=== PATIENT | female | born 1985 | race Two or more races ===

== ENCOUNTER 2018-08-02 01:15 | Emergency (ER) | payer OTHER ==
[2018-08-02] MEDS ORDERED: Acetaminophen/HYDROcodone 325-5 MG Tab PO STA (02:28)
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
[2018-08-02] MEDS ORDERED: Ondansetron 4 MG Tab.DIS PO ONE (03:26)
[2018-08-02] MEDS ORDERED: Ondansetron 4 MG Tab.DIS ONE (03:27)
== END 2018-08-02 02:45 | disposition home or self-care (01) ==
LOC: EEVIPCON 01:15 → JD.ED 01:15
DX: S00.83XA Contusion of other part of head, initial encounter (principal); S10.91XA Abrasion of unspecified part of neck, initial encounter; F17.210 Nicotine dependence, cigarettes, uncomplicated; Z88.1 Allergy status to other antibiotic agents; Y04.8XXA Assault by other bodily force, initial encounter
CPT/HCPCS: 99284; A9270; 99283

== ENCOUNTER 2019-01-19 12:30 | Emergency (ER) | payer SELFPAY ==
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
--- NOTE | 2019-01-20 09:28 | US ---
First trimester obstetrical ultrasound: Multiple real-time images were obtained transvaginally. Comparison: No previous study for current . Dates: LMP: LMP given as 12/02/18, FABIOLA 09/08/19, gestational age 6 weeks 6 days Current ultrasound: FABIOLA 09/08/19, gestational age 6 weeks 6 days Single intrauterine gestation is seen. Yolk sac and pole are noted. Minimal subchorionic hemorrhage is seen. Small echogenic area is noted within the left ovary believed to be incidental. Hypoechoic area is seen within the right ovary measuring 3.2 cm which is likely physiologic. Free fluid seen within the pelvis. Measurements: Gestational sac: 2.08 cm - 6 weeks 4 days [place]-rump length: 0.85 cm - 6 weeks 6 days Heart rate: 122 bpm Impression: 1. Single intrauterine gestation. Dates as noted above. 2. Minimal subchorionic hemorrhage. Other findings believed to be incidental. Diagnostic code #2 I agree with preliminary report from [facility], finalized on 01/19/19, 4:49 PM Central Time
== END 2019-01-19 16:20 | disposition home or self-care (01) ==
LOC: JD.ED 12:30
DX: O20.8 Other hemorrhage in early pregnancy (principal); Z88.1 Allergy status to other antibiotic agents; Z87.891 Personal history of nicotine dependence; Z3A.01 Less than 8 weeks gestation of pregnancy
CPT/HCPCS: 36415; 76817; 76817-26; 81001; 84702; 85025; 86900; 86901; 99283; 99284-25

== ENCOUNTER 2019-02-04 10:53 | Emergency (ER) | payer SELFPAY ==
[2019-02-04] MEDS ORDERED: Sodium Chloride 0.9% 1,000 ML IV STA (11:16)
[2019-02-04] MEDS ORDERED: Ondansetron 4 MG/2 ML SDV IVPUSH ONE (11:16)
[2019-02-04] MEDS ORDERED: Sodium Chloride 0.9% 10 ML Syringe FLUSH PRN (11:16)
[2019-02-04] MEDS ORDERED: Acetaminophen 325 MG Tab PO ONE (11:23)
--- NOTE | 2019-02-04 13:01 | US ---
First trimester obstetrical ultrasound: Multiple real-time images were obtained transvaginally. Comparison: Previous obstetrical ultrasound of 01/19/19. Dates: LMP: LMP given as 12/02/18, FABIOLA 09/08/19, gestational age 9 weeks 1 day Current ultrasound: FABIOLA 09/09/19, gestational age 9 weeks 0 days Earliest ultrasound (01/19/19) : FABIOLA 09/08/19, gestational age 9 weeks 1 day Single intrauterine gestation is seen. Amniotic fluid volume is normal. Small embryo is identified. Small subchorionic hemorrhage is seen. Maternal ovaries are within normal limits. Measurements: [place]-rump length: 21.83 mm - 8 weeks 6 days Heart rate: 179 bpm Impression: 1. Small subchorionic hemorrhage. 2. Single intrauterine gestation, dates as noted above. 3. No other complicating process is seen by ultrasound exam. Diagnostic code #3
--- NOTE | 2019-02-04 13:51 | EDM.PDOC ---
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 She is at 9 weeks gestation with a LNMP of 12/02/18. She was seen here on the and diagnosed with a subchorionic hemorrhage. She then had some bleeding last week and again last night. She felt light headed last night. She has pain to the left lower abdomen and pelvis. She has no fever, chills, cough, chest pain or shortness of breath. She has no pain with urination. Her doctor is Dr Beltran. She has nausea but no vomiting. Onset: Gradual Duration: Day(s): (Last night) Location: Reports: Abdomen Quality: Reports: Sharp Severity: Moderate Improves with: Reports: None Worsens with: Reports: None Associated Symptoms: Reports: Nausea/Vomiting Right Lower Pelvic Pain Score (Numeric/FACES): 10 - Related Data Allergies Allergy/AdvReac Type Severity Reaction Status Date / Time ciprofloxacin [From Cipro] Allergy Rash Verified 02/04/19 11:00 Home Meds: Home Meds Vit37/Iron/Folic Acid [Prenata] 1 tab PO DAILY 01/19/19 [History] Past Medical History - Past Health History Medical/Surgical History: Denies Medical/Surgical History 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: Musculoskeletal History: Reports: Other (See Below) Other Musculoskeletal History: vitamin D deficiency - Infectious Disease History Infectious Disease History: Reports: Chicken Pox Social & Family History - Family History Family Medical History: Noncontributory - Tobacco Use Smoking Status *Q: Current Some Day Smoker Years of Tobacco use: 18 Packs/Tins Daily: 0.5 Used Tobacco, but Quit: Yes Month/Year Tobacco Last Used: Dec 2018 - Caffeine Use Caffeine Use: Reports: Coffee - Recreational Drug Use Recreational Drug Use: No - Living Situation & Occupation Living situation: Reports: , with Spouse, with Family (Son) Occupation: Employed ([employer]) ED ROS GENERAL - Review of Systems Review Of Systems: See Below Constitutional: Reports: No Symptoms HEENT: Reports: No Symptoms Respiratory: Reports: No Symptoms Cardiovascular: Reports: No Symptoms Endocrine: Reports: No Symptoms GI/Abdominal: Reports: Abdominal Pain, Nausea. Denies: Vomiting : Reports: No Symptoms Musculoskeletal: Reports: No Symptoms Skin: Reports: No Symptoms ED EXAM - Physical Exam Exam: See Below Exam Limited By: No Limitations General Appearance: Alert, No Apparent Distress Ears: Normal External Exam Nose: Normal Inspection Head: Atraumatic, Normocephalic Neck: Normal Inspection Respiratory/Chest: No Respiratory Distress, Lungs Clear, Normal Breath Sounds Cardiovascular: Regular Rate, Rhythm, No Edema, No Murmur GI/Abdominal Exam: Soft, No Mass, Tender (Moderate tenderness to the right lower abdomen) Extremities: Normal Inspection Course - Vital Signs Last Recorded V/S: Last Vital Signs Temp 97.5 F 02/04/19 11:00 Pulse 108 H 02/04/19 11:00 Resp 18 02/04/19 11:00 BP 119/85 02/04/19 11:00 Pulse Ox 98 02/04/19 11:00 Orthostatic Blood Pressure [ 119/76 Standing] Orthostatic Blood Pressure [ 114/78 Sitting] Orthostatic Blood Pressure [ 121/79 Supine] - Orders/Labs/Meds Orders: Active Orders 24 hr Category Date Time Status Pelvic Exam, Set Up [RC] ASDIRECTED Care 02/04/19 11:19 Active Peripheral IV Care [RC] . DIRECTED Care 02/04/19 11:16 Active Sodium Chloride 0.9% [Saline Flush] Med 02/04/19 11:16 Active 10 ml FLUSH ASDIRECTED PRN ED Antiemetic Medication Reflex [OM.PC] Stat Oth 02/04/19 11:16 Ordered Peripheral IV Insertion Adult [OM.PC] Stat Oth 02/04/19 11:16 Ordered Medication Orders Sodium Chloride (Saline Flush) 10 ml FLUSH ASDIRECTED PRN PRN Reason: Keep Vein Open Last Admin: 02/04/19 11:30 Dose: 10 ml Labs: Laboratory Tests 02/04/19 02/04/19 02/04/19 Range/Units 11:25 11:25 11:25 WBC 10.95 H (3.98-10.04) K/mm3 RBC 4.27 (3.98-5.22) M/mm3 Hgb 12.7 (11.2-15.7) gm/dl Hct 37.5 (34.1-44.9) % MCV 87.8 (79.4-94.8) fl MCH 29.7 (25.6-32.2) pg MCHC 33.9 (32.2-35.5) g/dl RDW Std Deviation 40.2 (36.4-46.3) fL Plt Count 284 (182-369) K/mm3 MPV 8.7 L (9.4-12.3) fl Neut % (Auto) 73.2 H (34.0-71.1) % Lymph % (Auto) 15.3 L (19.3-51.7) % [place] % (Auto) 10.4 (4.7-12.5) % Eos % (Auto) 0.7 (0.7-5.8) Baso % (Auto) 0.2 (0.1-1.2) % Neut # (Auto) 8.01 H (1.56-6.13) K/mm3 Lymph # (Auto) 1.68 (1.18-3.74) K/mm3 [place] # (Auto) 1.14 H (0.24-0.36) K/mm3 Eos # (Auto) 0.08 (0.04-0.36) K/mm3 Baso # (Auto) 0.02 (0.01-0.08) K/mm3 Sodium 137 (136-145) mEq/L Potassium 3.8 (3.5-5.1) mEq/L Chloride 102 (98-107) mEq/L Carbon Dioxide 24 (21-32) mEq/L Anion Gap 14.8 (5-15) BUN 9 (7-18) mg/dL Creatinine 0.8 (0.55-1.02) mg/dL Est Cr Clr Drug Dosing 84.29 mL/min Estimated GFR (MDRD) > 60 (>60) mL/min BUN/Creatinine Ratio 11.3 L (14-18) Glucose 95 (74-106) mg/dL Calcium 8.9 (8.5-10.1) mg/dL Total Bilirubin 0.4 (0.2-1.0) mg/dL AST 12 L (15-37) U/L ALT 20 (14-59) U/L Alkaline Phosphatase 39 L (46-116) U/L Total Protein 7.7 (6.4-8.2) g/dl Albumin 3.8 (3.4-5.0) g/dl Globulin 3.9 gm/dL Albumin/Globulin Ratio 1.0 (1-2) HCG, Quant 170766.0 mIU/mL Blood Type 02/04/19 Range/Units 11:25 WBC (3.98-10.04) K/mm3 RBC (3.98-5.22) M/mm3 Hgb (11.2-15.7) gm/dl Hct (34.1-44.9) % MCV (79.4-94.8) fl MCH (25.6-32.2) pg MCHC (32.2-35.5) g/dl RDW Std Deviation (36.4-46.3) fL Plt Count (182-369) K/mm3 MPV (9.4-12.3) fl Neut % (Auto) (34.0-71.1) % Lymph % (Auto) (19.3-51.7) % [place] % (Auto) (4.7-12.5) % Eos % (Auto) (0.7-5.8) Baso % (Auto) (0.1-1.2) % Neut # (Auto) (1.56-6.13) K/mm3 Lymph # (Auto) (1.18-3.74) K/mm3 [place] # (Auto) (0.24-0.36) K/mm3 Eos # (Auto) (0.04-0.36) K/mm3 Baso # (Auto) (0.01-0.08) K/mm3 Sodium (136-145) mEq/L Potassium (3.5-5.1) mEq/L Chloride (98-107) mEq/L Carbon Dioxide (21-32) mEq/L Anion Gap (5-15) BUN (7-18) mg/dL Creatinine (0.55-1.02) mg/dL Est Cr Clr Drug Dosing mL/min Estimated GFR (MDRD) (>60) mL/min BUN/Creatinine Ratio (14-18) Glucose (74-106) mg/dL Calcium (8.5-10.1) mg/dL Total Bilirubin (0.2-1.0) mg/dL AST (15-37) U/L ALT (14-59) U/L Alkaline Phosphatase (46-116) U/L Total Protein (6.4-8.2) g/dl Albumin (3.4-5.0) g/dl Globulin gm/dL Albumin/Globulin Ratio (1-2) HCG, Quant mIU/mL Blood Type O POSITIVE Meds: Medications Generic Name Dose Route Start Last Admin Trade Name Freq PRN Reason Stop Dose Admin Sodium Chloride 10 ml 02/04/19 11:16 02/04/19 11:30 Saline Flush FLUSH 10 ml ASDIRECTED PRN Administration Keep Vein Open Discontinued Medications Generic Name Dose Route Start Last Admin Trade Name Freq PRN Reason Stop Dose Admin Acetaminophen 975 mg 02/04/19 11:23 02/04/19 11:30 Tylenol PO 02/04/19 11:24 975 mg NOW ONE Administration Sodium Chloride 1,000 mls @ 1,000 mls/hr 02/04/19 11:16 02/04/19 11:28 Normal Saline IV 02/04/19 12:15 1,000 mls/hr .BOLUS STA Administration Ondansetron HCl 4 mg 02/04/19 11:16 02/04/19 11:28 Zofran IVPUSH 02/04/19 11:17 4 mg ONETIME ONE Administration - Re-Assessments/Exams Free Text/Narrative Re-Assessment/Exam: 02/04/19 13:59 I ordered an IV NS 1L bolus, labs, and a pelvic US. Her WBC was slightly elevated at 10.95. Her CMP looks good. Her Hcg is 151,386. Her US shows small subchorionic hemorrhage. Single intrauterine gestation, at 8 weeks 6 days. No other complicating process is seen by US. I called Dr Beltran's nurse and they will call the patient to check on her and see if they can see her sooner. Departure - Departure Time of Disposition: 14:05 Disposition: Home, Self-Care 01 Condition: Good Clinical Impression: Subchorionic hemorrhage Qualifiers: Fetus number: single or unspecified fetus Trimester: first trimester Qualified Code(s): O41.8X10 - Other specified disorders of amniotic fluid and membranes, first trimester, not applicable or unspecified; O46.8X1 - Other antepartum hemorrhage, first trimester - Discharge Information *PRESCRIPTION DRUG MONITORING PROGRAM REVIEWED*: No *COPY OF PRESCRIPTION DRUG MONITORING REPORT IN PATIENT LIDIA: No Referrals: Javon Beltran MD [Primary Care Provider] - Forms: ED Department Discharge Additional Instructions: Dr Beltran's nurse will call you within a few days to check on you. No lifting over 8 pounds. Eight pounds is about the weight of a milk jug. No vaginal intercourse until are you cleared by Dr Beltran. Please return if you are worse. - My Orders Last 24 Hours: My Active Orders 02/04/19 11:16 Peripheral IV Care [RC] . DIRECTED Sodium Chloride 0.9% [Saline Flush] 10 ml FLUSH ASDIRECTED PRN ED Antiemetic Medication Reflex [OM.PC] Stat Peripheral IV Insertion Adult [OM.PC] Stat 02/04/19 11:19 Pelvic Exam, Set Up [RC] ASDIRECTED - Assessment/Plan Last 24 Hours: My Active Orders 02/04/19 11:16 Peripheral IV Care [RC] . DIRECTED Sodium Chloride 0.9% [Saline Flush] 10 ml FLUSH ASDIRECTED PRN ED Antiemetic Medication Reflex [OM.PC] Stat Peripheral IV Insertion Adult [OM.PC] Stat 02/04/19 11:19 Pelvic Exam, Set Up [RC] ASDIRECTED
== END 2019-02-04 14:25 | disposition home or self-care (01) ==
LOC: JD.ED 10:53
DX: O20.9 Hemorrhage in early pregnancy, unspecified (principal); O99.331 Smoking (tobacco) complicating pregnancy, first trimester; F17.210 Nicotine dependence, cigarettes, uncomplicated; Z88.1 Allergy status to other antibiotic agents; Z3A.09 9 weeks gestation of pregnancy
CPT/HCPCS: 36415; 76817; 80053; 84702; 85025; 86900; 86901; 96361; 96374; 99284; A9270; J2405; J7040

== ENCOUNTER 2019-09-01 07:16 | Inpatient (IN) | payer MEDICAID ==
--- NOTE | 2019-08-31 08:42 | PCM.HP.2 ---
H&P History of Present Illness - General Date of Service: 09/01/19 Admit Problem/Dx: Jana is a 34-year-old 2 para 1001 white female who is admitted for elective induction of labor on 09/01/2019 at 39-0/7 weeks gestational age with an FABIOLA of 09/08/2019. Source of Information: Patient History Limitations: Reports: No Limitations - History of Present Illness Initial Comments - Free Text/Narative: Jana is a 34-year-old 2 para 1001 white female who is admitted for elective induction of labor on 09/01/2019 at 39-0/7 weeks gestational age with an FABIOLA of 09/08/2019.The procedure and process of induction of labor, its risks, benefits and alternatives are discussed in detail with patient. She appears to understand and wishes to proceed. course: The patient has been seen since early part of at 10 weeks and 3 days. Her FABIOLA of 09/08/2019 was set by certain last menstrual period occurring 12/02/2018 and supported by at least 5 ultrasounds during the course of the . Her first delivery was an on 10/16/2006 at 40 weeks gestational age after 18 hours of labor. She delivered a 7 lbs. 6 oz. male infant with the assistance of epidural analgesia in [facility]. Child's name is Tyler. She is rubella immune. She had her T-dap immunization on 07/24/2019. Her has been highlighted by a positive RPR for which she and her sexual partner have been treated. Her syphilis titers have been maintained at 1: 2 much of the last trimester of the . Approximately 08/18/2019 she was noted to have an umbilicated tender lesion left labia which was diagnosed as genital HSV. She was started on acyclovir 400 mg by mouth 3 times a day. With this lesion has resolved. Patient is maintained on prophylactic acyclovir at the same dose. otherwise has been relatively unremarkable. Her weight gain has been from 164 193 pounds from 29 pound increase. Her vital signs been stable throughout the course and her fundal height growth has been just above infected. She is admitted for induction of labor because of an HSV clear window. Pediatrics has been end of the positive RPR and the titers obtained recently. Patient desires an epidural in labor. She is group B strep negative. She had an e- PDS score of 1/30 on 04/09/2019. She had nausea and vomiting which did resolve within the first trimester. She plans to breast- feed. She did have a subchorionic hemorrhage noted on ultrasound in second trimester. This has resolved. Laboratory testing and shows blood to be O+ with negative and by screen. First hemoglobin was 13.2 g/dL and platelets are 256,000. She is rubella immune. Her RPR was reactive as stated above. Culture was unremarkable. Hepatitis B surface antigen and HIV assays were both negative. Chlamydia and gonorrhea assays are both negative. TSH obtained on 06/09/2019 was normal at 0.903 mU/mL. Second trimester hemoglobin was 12.3 g/dL and platelets are 246,000. One-hour GTT was 93. Free T4 on 06/09/2019 was normal at 0.68. With treatment her RPR titer decreased to 1:[address] for the last month. 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 Allergies: Ciprofloxacin which causes a rash Medications: 1. Acyclovir 400 mg by mouth 3 times a day 2. Lidocaine gel/ointment when necessary for painnow resolved 3. vitamins Past medical history: 1. 1 2006. 2. Positive RPR 3. Genital HSV. Past surgical history: Unremarkable Family history: Patient has a son who is autistic. Sister and maternal grandfather is diabetic. Mother is alive but diagnosed with pancreatic cancer. Father is alive and well. Brother is alive and well. One sister alive and well. No other anesthesia, bleeding, blood clotting or cancerous problems noted in the family. Social history: Patient is . is [place] and she does not use any significant most alcohol, drugs or tobacco. Review of systems: In general patient has no complaints. AB has been active. Skin: Negative Lungs: No infectious symptoms or shortness of breath Cardiovascular: No chest pain or exercise intolerance Breasts: Changes associated with . GI: Negative : Body habitus changes associated with . Musculoskeletal: Negative Neurological: Negative In general the patient is well-developed, well-nourished, pleasant female of stated age in no acute distress. On last evaluation in clinic on 08/25/2019 her blood pressure was 114/76. Weight was 193 with a pregravid weight 164. Her height is 5 feet 3 inches. Prepregnancy body mass index was 25.5. heart rate was 128. Skin is warm dry without lesions. HEENT, neck and back within normal limits. Lungs are clear with good breath sounds in all lung stephenson. Cardiovascular exam shows regular and rhythm without murmurs. Breast exam is deferred. This is done at first visit found to be normal. Abdomen is gravid with fundal height of 41 cm. Baby in vertex presentation. Genital exam on last evaluation clinic shows cervix to be 2 cm dilated, 70% effaced, soft, mid position, -3 station. Presentation confirmed Extremities and neurological exam are grossly within normal limits. 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: Musculoskeletal History: Reports: Other (See Below) Other Musculoskeletal History: vitamin D deficiency - Infectious Disease History Infectious Disease History: Reports: Chicken Pox Social & Family History - Family History Family Medical History: Noncontributory - Caffeine Use Caffeine Use: Reports: Coffee - Living Situation & Occupation Living situation: Reports: , with Spouse, with Family (Son) Occupation: Employed ([employer]) H&P Review of Systems - Review of Systems: Review Of Systems: See Below Exam - Exam Exam: See Below Problem List Initiated/Reviewed/Updated: Yes Assessment/Plan Comment:: 1. Follow 39-0/7 week intrauterine , admitted for elective induction of labor 2. History of positive RPRstatus post treatment with tighter over the last month at 1:2. 3. Genital HSV diagnosed 08/18/2019treated with acyclovir 400 by mouth 3 times a day since that time now on prophylaxis dose. 4. Patient desires breast-feeding 5. Patient desires epidural in labor and delivery 6. Rubella immune 7. Patient has had T dap immunization Plan: 1. Pitocin/artificial rupture membranes induction of labor. Procedure, risks, benefits, alternatives care discussed with patient. She appears understand and wishes to proceed 2. Epidural for labor 3. Support breast-feeding decision 4. RPR titer and CBC upon admission. 5. PediatricsDr. Ricksinformed of patient's RPR status. Has been sent latest lab results. 6. Routine labor care. 7. Continue acyclovir until the time of labor.
[~2019-09-01 07:16] MED LIST: Bupivacaine 0.25% 10 ML SDV ONE
[2019-09-01] MEDS ORDERED: Sodium Chloride 0.9% 10 ML Syringe FLUSH PRN (07:27)
[2019-09-01] MEDS ORDERED: Ondansetron 4 MG/2 ML SDV IVPUSH PRN (07:27)
[2019-09-01] MEDS ORDERED: Nalbuphine 10 MG/ML Syringe IVPUSH PRN (07:27)
[2019-09-01] MEDS ORDERED: Oxytocin/Lactated Ringers 10 UNIT/1,000 ML BAG IV SCH ×2 (07:30)
[2019-09-01] MEDS ORDERED: Acetaminophen 325 MG Tab PO PRN (07:46)
[2019-09-01] MEDS ORDERED: ePHEDrine 50 MG/ML SDV IVPUSH PRN (07:54)
[2019-09-01] MEDS ORDERED: fentaNYL 100 MCG/2 ML SDV EPIDUR PRN (07:54)
[2019-09-01] MEDS ORDERED: Bupivacaine/fentaNYL/NS 100 ML Bag EPIDUR PRN (07:54)
[2019-09-01] MEDS ORDERED: diphenhydrAMINE 50 MG/ML SDV IVPUSH PRN (07:54)
[2019-09-01] MEDS: Lactated Ringers 1,000 ML IV SCH ×3 (08:30→15:47)
--- NOTE | 2019-09-01 11:33 | PCM.PREANE ---
Preanesthetic Assessment - Procedure Proposed Procedure: Epidural - Anesthesia/Transfusion/Family Hx Anesthesia History: Prior Anesthesia Without Reaction Family History of Anesthesia Reaction: No Transfusion History: No Prior Transfusion(s) - Review of Systems General: No Symptoms Pulmonary: No Symptoms Cardiovascular: No Symptoms Gastrointestinal: No Symptoms Neurological: No Symptoms Other: Reports: None - Physical Assessment Vital Signs: Last Vital Signs Temp 36.9 C 09/01/19 07:28 Pulse 102 H 09/01/19 08:48 Resp 16 09/01/19 07:28 BP 108/73 09/01/19 07:28 Pulse Ox 98 09/01/19 07:28 Height: 1.6 m Weight: 88.451 kg ASA Class: 2 Mental Status: Alert & Oriented x3 Airway Class: Mallampati = 1 Dentition: Reports: Normal Dentition Thyro-Mental Finger Breadths: 3 Mouth Opening Finger Breadths: 3 ROM/Head Extension: Full Lungs: Clear to Auscultation, Normal Respiratory Effort Cardiovascular: Regular Rate, Regular Rhythm - Lab Values: Laboratory Last Values WBC 10.48 K/mm3 (3.98-10.04) H 09/01/19 07:50 RBC 4.16 M/mm3 (3.98-5.22) 09/01/19 07:50 Hgb 12.1 gm/dl (11.2-15.7) 09/01/19 07:50 Hct 36.5 % (34.1-44.9) 09/01/19 07:50 MCV 87.7 fl (79.4-94.8) 09/01/19 07:50 MCH 29.1 pg (25.6-32.2) 09/01/19 07:50 MCHC 33.2 g/dl (32.2-35.5) 09/01/19 07:50 RDW Std Deviation 45.6 fL (36.4-46.3) 09/01/19 07:50 Plt Count 246 K/mm3 (182-369) 09/01/19 07:50 MPV 9.3 fl (9.4-12.3) L 09/01/19 07:50 Neut % (Auto) 61.7 % (34.0-71.1) 09/01/19 07:50 Lymph % (Auto) 25.2 % (19.3-51.7) 09/01/19 07:50 [place] % (Auto) 11.4 % (4.7-12.5) 09/01/19 07:50 Eos % (Auto) 1.0 (0.7-5.8) 09/01/19 07:50 Baso % (Auto) 0.2 % (0.1-1.2) 09/01/19 07:50 Neut # (Auto) 6.47 K/mm3 (1.56-6.13) H 09/01/19 07:50 Lymph # (Auto) 2.64 K/mm3 (1.18-3.74) 09/01/19 07:50 [place] # (Auto) 1.19 K/mm3 (0.24-0.36) H 09/01/19 07:50 Eos # (Auto) 0.11 K/mm3 (0.04-0.36) 09/01/19 07:50 Baso # (Auto) 0.02 K/mm3 (0.01-0.08) 09/01/19 07:50 - Allergies Allergies/Adverse Reactions: Allergies Allergy/AdvReac Type Severity Reaction Status Date / Time ciprofloxacin [From Cipro] Allergy Rash Verified 09/01/19 07:27 - Acknowledgements Anesthesia Type Planned: Epidural Pt an Appropriate Candidate for the Planned Anesthesia: Yes Alternatives and Risks of Anesthesia Discussed w Pt/Guardian: Yes Pt/Guardian Understands and Agrees with Anesthesia Plan: Yes PreAnesthesia Questionnaire - Past Health History Medical/Surgical History: Denies 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: Musculoskeletal History: Reports: Other (See Below) Other Musculoskeletal History: vitamin D deficiency - Infectious Disease History Infectious Disease History: Reports: Chicken Pox, Herpes, Other (See Below) Other Infectious Disease History: RPR positive in February 2019, titer 1:32, treated x3 IM Penicillin doses - SUBSTANCE USE Smoking Status *Q: Former Smoker Second Hand Smoke Exposure: No Recreational Drug Use History: No - HOME MEDS Home Medications: Home Meds Vit37/Iron/Folic Acid [Prenata] 1 tab PO DAILY 01/19/19 [History] Acyclovir [Zovirax] 400 mg PO TID 09/01/19 [History] - CURRENT (IN HOUSE) MEDS Current Meds: Current Medications Acetaminophen (Tylenol) 650 mg PO Q4H PRN PRN Reason: Headache Last Admin: 09/01/19 07:55 Dose: 650 mg Diphenhydramine HCl (Benadryl) 25 mg IVPUSH Q6H PRN PRN Reason: pruritis Ephedrine Sulfate (Ephedrine Sulfate) 5 mg IVPUSH ASDIRECTED PRN PRN Reason: Hypotension Fentanyl (Sublimaze) 100 mcg EPIDUR Q3H PRN PRN Reason: Pain Fentanyl/Bupivacaine HCl (Fentanyl/Bupivacaine/Ns 2 Mcg-0.125% 100 Ml) 100 ml EPIDUR ASDIRECTED PRN PRN Reason: Pain Lactated Ringer's (Ringers, Lactated) 1,000 mls @ 100 mls/hr IV ASDIRECTED PHYLLIS Last Admin: 09/01/19 08:30 Dose: 100 mls/hr Oxytocin/Lactated Ringer's (Pitocin In Lr 10 Units/1,000 Ml) 10 unit in 1,000 mls @ 12 mls/hr IV TITRATE PHYLLIS; Protocol Last Titration: 09/01/19 11:20 Dose: 14 munits/min, 84 mls/hr Oxytocin/Lactated Ringer's (Pitocin In Lr 10 Units/1,000 Ml) 10 unit in 1,000 mls @ 500 mls/hr IV .CONTINUOUS PHYLLIS Nalbuphine HCl (Nubain) 10 mg IVPUSH Q2H PRN PRN Reason: Pain Ondansetron HCl (Zofran) 4 mg IVPUSH Q4H PRN PRN Reason: Nausea/Vomiting Sodium Chloride (Saline Flush) 10 ml FLUSH ASDIRECTED PRN PRN Reason: Keep Vein Open
[2019-09-01] MEDS ORDERED: Oxytocin/Lactated Ringers 20 UNIT/1,000 ML BAG IV SCH (14:15)
[2019-09-01] MEDS ORDERED: Methylergonovine 0.2 MG/1 ML Amp IM ONE (21:00)
[2019-09-01] MEDS ORDERED: Methylergonovine 0.2 MG/1 ML Amp ONE ×2 (21:12→21:15)
--- NOTE | 2019-09-01 21:23 | PCM.SN ---
- Free Text/Narrative Note: Delivery note: Jana is a 34-year-old 2 para 1001 white female who is admitted for elective induction of labor on 09/01/2019 at 39-0/7 weeks gestational age with an FABIOLA of 09/08/2019.Induction started with Pitocin IV. After approximately 3 hours artificial rupture membranes was undertaken with resultant clear amniotic fluid. Patient had an epidural for labor analgesia. With that she is able to rest. She slowly progressed to 5-6 hours and rapidly progressed to sleep. She pushed for approximately 30 minutes and delivered a viable, bonilla, female infant with Apgars of 8 and 9, length of 20.0 inches weight of 3660 g (8 lbs. 1 oz.) in a left occiput anterior position at 2100 hrs. on 09/01/2019. Baby was placed on mom's abdomen. Nose and mouth were bulb suctioned. Pitocin was increased to facilitate an increase in uterine tone and decrease likelihood of bleeding. Patient did have moderate amount of bleeding and IM Methergine-0.2 mg was given. The baby was was dried and the umbilical cord was allowed to pulsate approximate 2-3 minutes. It was then clamped 2 and cut by the baby's father Shawn. There were 3 vessels in the umbilical cord. Umbilical cord appeared normal. Cord blood was obtained. The placenta delivered at 2105 hrs. in a [place] presentation, appeared intact and complete and was discarded per patient desire. The patient plans to breast-feed. Blood loss was 300 mL. Condition: TeleHealth - TeleHealth Patient Service Facility: [facility]: [facility] Informed Consent: Telemedicine Audio/Visual Informed Consent: The risks, benefits, and alternatives to the telehealth visit were explained to the patient and the patient consented to this modality of care. The telehealth visit was carried out via a secure, web-based conferencing system. This telemedicine service was a real-time, two-way interactive video and communication between the patient and the provider. All the parties involved were identified and approved by the patient prior to the visit. Any physical exam was assisted by the patient. Unless noted otherwise, the provider was located at their usual clinic location , and the patient was at their place of residence. Patient identity was confirmed by having the patient state their name and date of . All communications with the patient (verbal, audiovisual, and written) were documented in the patients medical record per documentation standards.
[2019-09-01] MEDS ORDERED: Docusate Sodium 100 MG Cap PO PRN (21:25)
[2019-09-01] MEDS ORDERED: Benzocaine/Menthol 20%-0.5% Spray 56 GM Canister TOP PRN (21:25)
[2019-09-01] MEDS ORDERED: Witch Hazel Medicated Pads 40/Jar TOP PRN (21:25)
[2019-09-01] MEDS: Ibuprofen 600 MG Tab PO PRN (22:11)
--- NOTE | 2019-09-02 07:49 | PCM48HPAN ---
Post Anesthesia Note - EVALUATION WITHIN 48HRS OF ANESTHETIC Vital Signs in Normal Range: Yes Patient Participated in Evaluation: Yes Respiratory Function Stable: Yes Airway Patent: Yes Cardiovascular Function Stable: Yes Hydration Status Stable: Yes Pain Control Satisfactory: Yes Nausea and Vomiting Control Satisfactory: Yes Mental Status Recovered: Yes Vital Signs: Last Vital Signs Temp 36.7 C 09/02/19 02:35 Pulse 87 09/02/19 02:35 Resp 14 09/02/19 02:35 BP 123/68 09/02/19 02:35 Pulse Ox 95 09/02/19 02:35 - COMMENTS/OBSERVATIONS Free Text/Narrative:: no anesthesia complications noted
[2019-09-02] MEDS: Prenatal Multivitamin with Calcium/Folic Acid/Iron Tab PO SCH (09:26)
[2019-09-02] MEDS: Ibuprofen 600 MG Tab PO PRN ×2 (09:26→19:47)
--- NOTE | 2019-09-02 11:20 | PCM.SN.2 ---
- Free Text/Narrative Note: note: Patient is doing well in the period. Minimal lochia, voiding well, ambulated without problems. Patient is bottle feeding. Patient is afebrile, vital signs are stable Abdomen is flat, soft, uterus is just above the umbilicus and is firm and nontender. Legs are nontender. Assessment: recovery going well. Plan: Routine care. Patient be discharged home within the next 24- 48 hours.
[2019-09-02] MEDS: Acetaminophen 325 MG Tab PO PRN (21:43)
[2019-09-03] MEDS: Acetaminophen 325 MG Tab PO PRN ×2 (04:54→09:10)
[2019-09-03] MEDS: Ibuprofen 600 MG Tab PO PRN ×2 (04:54→09:09)
--- NOTE | 2019-09-03 09:06 | PCM.DCSUM1 ---
Discharge Summary - Hospital Course Free Text/Narrative:: Jana is a 34-year-old 2 para 1001 white female who is admitted for elective induction of labor on 09/01/2019 at 39-0/7 weeks gestational age with an FABIOLA of 09/08/2019. Patient's course was complicated by positive RPR for which she and her were treated. Titers have a client 1:2 and a been maintained at that level. She also had an outbreak of genital HSV approximately 2 weeks prior to the induction date. She's been treated with acyclovir therapeutically initially and then prophylactically thereafter and now his free of symptoms and signs of any HSV. Induction started with Pitocin IV. After approximately 3 hours artificial rupture membranes was undertaken with resultant clear amniotic fluid. Patient had an epidural for labor analgesia. With that she is able to rest. She slowly progressed to 5-6 hours and rapidly progressed to sleep. She pushed for approximately 30 minutes and delivered a viable, bonilla, female with Apgars of 8 and 9, length of 20.0 inches weight of 3660 g (8 lbs. 1 oz.) in a left occiput anterior position at 2100 hrs. on 09/01/2019. Baby was placed on mom 's abdomen. Nose and mouth were bulb suctioned. Pitocin was increased to facilitate an increase in uterine tone and decrease likelihood of bleeding. Patient did have moderate amount of bleeding and IM Methergine-0.2 mg was given. The baby was was dried and the umbilical cord was allowed to pulsate approximate 2-3 minutes. It was then clamped 2 and cut by the baby's father Shawn. There were 3 vessels in the umbilical cord. Umbilical cord appeared normal. Cord blood was obtained. The placenta delivered at 2105 hrs. in a [place] presentation, appeared intact and complete and was discarded per patient desire. patient is done well. She is voiding well, has minimal lochia and is ambulating well. She is taking ibuprofen and Tylenol for pain. The patient plans to bottle feed. Blood loss was 300 mL. Condition: Good Diagnosis: Stroke: No - Discharge Data Discharge Date: 09/03/19 Discharge Disposition: Home, Self-Care 01 Condition: Good - Referral to Home Health Primary Care Physician: Javon Beltran MD - Patient Instructions Diet: Regular Diet as Tolerated Activity: As Tolerated (No intercourse or tampons until bleeding resolves) Driving: May Drive Today Showering/Bathing: May Shower (May take a bath) Notify Provider of: Fever, Increased Pain, Swelling and Redness, Nausea and/or Vomiting - Discharge Plan Home Medications: Home Meds Vit37/Iron/Folic Acid [Prenata] 1 tab PO DAILY 01/19/19 [History] Acetaminophen [Tylenol] 650 mg PO Q4H PRN tablet 09/03/19 [Rx] Ibuprofen [Motrin] 600 mg PO Q4H PRN tablet 09/03/19 [Rx] Referrals: Javon Beltran MD [Primary Care Provider] - (She is to call in to schedule a tele-health visit 2 weeks after delivery.) - Discharge Summary/Plan Comment DC Time >30 min.: No Discharge Summary/Plan Comment: Discharge instructions: 1. Discharge home 2. Diet, activity and follow-up discussed with patient. 3. Precautions given concern increased pain, bleeding, temperature, signs/ symptoms of DVT/PE. 4. Medications per home medication was printed, discussed with and given to the patient. 5. Call for a telehealth appt-Dr. Beltran[facility] in 2 weeks. Diagnosis: Term -delivered Condition: Good - Patient Data Vitals - Most Recent: Last Vital Signs Temp 37.2 C 09/03/19 04:23 Pulse 74 09/03/19 04:23 Resp 17 09/03/19 04:23 BP 125/71 09/03/19 04:23 Pulse Ox 96 09/03/19 04:23 Weight - Most Recent: 88.451 kg I&O - Last 24 hours: Intake & Output 09/02/19 09/03/19 09/03/19 22:59 06:59 14:59 Intake Total 150 Balance 150 Med Orders - Current: Current Medications Acetaminophen (Tylenol) 650 mg PO Q4H PRN PRN Reason: mild pain or fever Last Admin: 09/03/19 04:54 Dose: 650 mg Benzocaine/Menthol (Dermoplast Pain Relief [place]) 0 gm TOP ASDIRECTED PRN PRN Reason: Perineal Comfort Measure Last Admin: 09/01/19 22:11 Dose: 1 applic Docusate Sodium (Colace) 100 mg PO BID PRN PRN Reason: Constipation Last Admin: 09/02/19 09:26 Dose: 100 mg Ibuprofen (Motrin) 600 mg PO Q4H PRN PRN Reason: Mild pain or fever Last Admin: 09/03/19 04:54 Dose: 600 mg Prenat Multivit/Caroline/Iron/Folic Ac ( Plus Iron) 1 each PO DAILY PHYLLIS Last Admin: 09/02/19 09:26 Dose: 1 each Witch Anuradha (Tucks) 1 pad TOP ASDIRECTED PRN PRN Reason: Perineal Comfort Measure Last Admin: 09/01/19 22:11 Dose: 1 applic Discontinued Medications Acetaminophen (Tylenol) 650 mg PO Q4H PRN PRN Reason: Headache Last Admin: 09/01/19 07:55 Dose: 650 mg Bupivacaine HCl (Sensorcaine-Mpf 0.25%) 10 ml .ROUTE .[facility]-MED ONE Stop: 09/01/19 00:01 Diphenhydramine HCl (Benadryl) 25 mg IVPUSH Q6H PRN PRN Reason: pruritis Ephedrine Sulfate (Ephedrine Sulfate) 5 mg IVPUSH ASDIRECTED PRN PRN Reason: Hypotension Fentanyl (Sublimaze) 100 mcg EPIDUR Q3H PRN PRN Reason: Pain Last Admin: 09/01/19 15:19 Dose: 100 mcg Fentanyl/Bupivacaine HCl (Fentanyl/Bupivacaine/Ns 2 Mcg-0.125% 100 Ml) 100 ml EPIDUR ASDIRECTED PRN PRN Reason: Pain Last Admin: 09/01/19 15:19 Dose: 100 ml Lactated Ringer's (Ringers, Lactated) 1,000 mls @ 100 mls/hr IV ASDIRECTED PHYLLIS Last Admin: 09/01/19 15:47 Dose: 100 mls/hr Oxytocin/Lactated Ringer's (Pitocin In Lr 10 Units/1,000 Ml) 10 unit in 1,000 mls @ 12 mls/hr IV TITRATE PHYLLIS; Protocol Last Titration: 09/01/19 14:24 Dose: 0 munits/min, 0 mls/hr Oxytocin/Lactated Ringer's (Pitocin In Lr 10 Units/1,000 Ml) 10 unit in 1,000 mls @ 500 mls/hr IV .CONTINUOUS PHYLLIS Oxytocin/Lactated Ringer's (Pitocin In Lr 20 Units/1,000 Ml) 20 unit in 1,000 mls @ 66 mls/hr IV TITRATE PHYLLIS; Protocol Last Admin: 09/01/19 14:25 Dose: 66 mls/hr Methylergonovine Maleate (Methergine) Confirm Administered Dose 0.2 mg .ROUTE .STK-MED ONE Stop: 09/01/19 21:13 Last Admin: 09/01/19 21:25 Dose: Not Given Methylergonovine Maleate (Methergine) Confirm Administered Dose 0.2 mg .ROUTE .STK-MED ONE Stop: 09/01/19 21:16 Last Admin: 09/01/19 21:25 Dose: Not Given Methylergonovine Maleate (Methergine) 0.2 mg IM ONETIME ONE Stop: 09/01/19 21:01 Last Admin: 09/01/19 21:31 Dose: 0.2 mg Nalbuphine HCl (Nubain) 10 mg IVPUSH Q2H PRN PRN Reason: Pain Ondansetron HCl (Zofran) 4 mg IVPUSH Q4H PRN PRN Reason: Nausea/Vomiting Sodium Chloride (Saline Flush) 10 ml FLUSH ASDIRECTED PRN PRN Reason: Keep Vein Open
[2019-09-03] MEDS: Prenatal Multivitamin with Calcium/Folic Acid/Iron Tab PO SCH (09:10)
== END 2019-09-03 10:50 | disposition home or self-care (01) | DRG 807 ==
LOC: JD.OB 07:16 → OBSVTOIN 21:00 → JD.OB 21:00
PROVIDERS: ADMIT Obstetrics & Gynecology; ATTEND Obstetrics & Gynecology
PROC: 10E0XZZ Delivery of Products of Conception, External Approach (ICD-10-PCS; principal; 2019-09-01)
PROC: 10907ZC Drainage of Amniotic Fluid, Therapeutic from Products of Conception, Via Natural or Artificial Opening (ICD-10-PCS; 2019-09-01)
PROC: 3E033VJ Introduction of Other Hormone into Peripheral Vein, Percutaneous Approach (ICD-10-PCS; 2019-09-01)
PROC: 3E0R3BZ Introduction of Anesthetic Agent into Spinal Canal, Percutaneous Approach (ICD-10-PCS; 2019-09-01)
DX: O98.52 Other viral diseases complicating childbirth (principal); Z37.0 Single live birth; B00.9 Herpesviral infection, unspecified; Z3A.39 39 weeks gestation of pregnancy; Z87.891 Personal history of nicotine dependence
CPT/HCPCS: 36415; 51702; 59025; 59409; 85025; 86592; 86780; A9270-GY; J2210; J2590; J3010; J3490; J7120

== ENCOUNTER 2019-11-23 01:46 | Emergency (ER) | payer MEDICAID, OTHER ==
[2019-11-23] MEDS ORDERED: Acetaminophen/HYDROcodone 325-5 MG Tab PO ONE (03:21)
--- NOTE | 2019-11-23 03:41 | EDM.PDOC ---
ED HPI GENERAL MEDICAL PROBLEM - General Chief Complaint: Abdominal Pain Stated Complaint: CRAMPING AND BLEEDING Time Seen by Provider: 11/23/19 02:10 Source of Information: Reports: Patient History Limitations: Reports: No Limitations - History of Present Illness INITIAL COMMENTS - FREE TEXT/NARRATIVE: This is a 34-year-old female. She had onset of bleeding yesterday that was kind of light and she is status post delivery for about 3 months. She says about 8 weeks ago she had a very light period but none since that time until she started bleeding yesterday. The bleeding got much worse with increased cramping and pain and she comes to the ER for evaluation. She denies any fever or chills. She denies any urinary symptoms. She is a 2 para 2 aborta 0. She has had no nausea vomiting cough congestion or diarrhea. 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: Reports: Musculoskeletal History: Reports: Other (See Below) Other Musculoskeletal History: vitamin D deficiency Endocrine/Metabolic History: Reports: Vitamin D Deficiency - Infectious Disease History Infectious Disease History: Reports: None Other Infectious Disease History: RPR positive in February 2019, titer 1:32, treated x3 IM Penicillin doses Social & Family History - Family History Family Medical History: Noncontributory - Tobacco Use Smoking Status *Q: Current Every Day Smoker Years of Tobacco use: 15 Packs/Tins Daily: 0.5 - Caffeine Use Caffeine Use: Reports: Tea - Recreational Drug Use Recreational Drug Use: No - Living Situation & Occupation Living situation: Reports: , with Spouse, with Family (Son) Occupation: Employed ([employer]) ED ROS GENERAL - Review of Systems Review Of Systems: See Below Constitutional: Denies: Fever, Chills HEENT: Reports: No Symptoms Respiratory: Reports: No Symptoms Cardiovascular: Reports: No Symptoms Endocrine: Reports: No Symptoms GI/Abdominal: Reports: Abdominal Pain. Denies: Diarrhea, Nausea, Vomiting : Reports: Discharge Musculoskeletal: Reports: No Symptoms Skin: Reports: No Symptoms Neurological: Reports: No Symptoms Psychiatric: Reports: No Symptoms Hematologic/Lymphatic: Reports: No Symptoms ED EXAM, RENAL/ - Physical Exam Exam: See Below Exam Limited By: No Limitations General Appearance: Alert, WD/WN, No Apparent Distress Eye Exam: Bilateral Eye: Normal Inspection Ears: Normal External Exam Nose: Normal Inspection Throat/Mouth: Normal Lips, Normal Voice, No Airway Compromise Head: Normocephalic Neck: Supple Respiratory/Chest: No Respiratory Distress, Lungs Clear, Normal Breath Sounds Cardiovascular: Regular Rate, Rhythm, No Murmur GI/Abdominal: Soft, Other (Is noted to be tender in the suprapubic area on palpation but no other place on the abdomen, bowel sounds are positive) Back Exam: Full Range of Motion Extremities: Normal Inspection, Normal Range of Motion Neurological: Alert, Oriented Psychiatric: Normal Affect, Normal Mood Skin Exam: Warm, Dry Course - Vital Signs Last Recorded V/S: Last Vital Signs Temp 97.7 F 11/23/19 01:54 Pulse 108 H 11/23/19 01:54 Resp 16 11/23/19 01:54 BP 131/88 11/23/19 01:54 Pulse Ox 96 11/23/19 01:54 - Orders/Labs/Meds Orders: Active Orders 24 hr Category Date Time Status Pelvis Non OB Comp [US] Stat Exams 11/23/19 02:16 Taken UA W/MICROSCOPIC [URIN] Stat Lab 11/23/19 02:17 Ordered Labs: Laboratory Tests 11/23/19 11/23/19 11/23/19 Range/Units 02:24 02:24 03:11 WBC 9.60 (3.98-10.04) K/mm3 RBC 4.16 (3.98-5.22) M/mm3 Hgb 11.7 (11.2-15.7) gm/dl Hct 36.1 (34.1-44.9) % MCV 86.8 (79.4-94.8) fl MCH 28.1 (25.6-32.2) pg MCHC 32.4 (32.2-35.5) g/dl RDW Std Deviation 44.9 (36.4-46.3) fL Plt Count 269 (182-369) K/mm3 MPV 9.0 L (9.4-12.3) fl Neut % (Auto) 51.9 (34.0-71.1) % Lymph % (Auto) 33.3 (19.3-51.7) % [place] % (Auto) 12.1 (4.7-12.5) % Eos % (Auto) 2.3 (0.7-5.8) Baso % (Auto) 0.2 (0.1-1.2) % Neut # (Auto) 4.98 (1.56-6.13) K/mm3 Lymph # (Auto) 3.20 (1.18-3.74) K/mm3 [place] # (Auto) 1.16 H (0.24-0.36) K/mm3 Eos # (Auto) 0.22 (0.04-0.36) K/mm3 Baso # (Auto) 0.02 (0.01-0.08) K/mm3 Sodium 140 (136-145) mEq/L Potassium 3.7 (3.5-5.1) mEq/L Chloride 106 (98-107) mEq/L Carbon Dioxide 23 (21-32) mEq/L Anion Gap 14.7 (5-15) BUN 9 (7-18) mg/dL Creatinine 0.9 (0.55-1.02) mg/dL Est Cr Clr Drug Dosing 74.23 mL/min Estimated GFR (MDRD) > 60 (>60) mL/min BUN/Creatinine Ratio 10.0 L (14-18) Glucose 115 H (74-106) mg/dL Calcium 8.4 L (8.5-10.1) mg/dL Total Bilirubin 0.2 (0.2-1.0) mg/dL AST 16 (15-37) U/L ALT 25 (14-59) U/L Alkaline Phosphatase 85 (46-116) U/L Total Protein 6.9 (6.4-8.2) g/dl Albumin 3.5 (3.4-5.0) g/dl Globulin 3.4 gm/dL Albumin/Globulin Ratio 1.0 (1-2) Urine Color [place] H (Yellow) Urine Appearance Slt cloudy H (Clear) Urine pH 6.5 (5.0-8.0) Ur Specific [place] 1.025 (1.005-1.030) Urine Protein 1+ H (Negative) Urine Glucose (UA) Negative (Negative) Urine Ketones Negative (Negative) Urine Occult Blood 3+ H (Negative) Urine Nitrite Negative (Negative) Urine Bilirubin Negative (Negative) Urine Urobilinogen 0.2 (0.2-1.0) Ur Leukocyte Esterase Negative (Negative) Meds: Medications Discontinued Medications Generic Name Dose Route Start Last Admin Trade Name Freq PRN Reason Stop Dose Admin Hydrocodone Bitart/Acetaminophen 1 tab 11/23/19 03:21 11/23/19 03:26 [place] 325-5 Mg PO 11/23/19 03:22 1 tab ONETIME ONE Administration - Radiology Interpretation Free Text/Narrative:: Her sound shows thickened endometrium without local filling defect suggestion that this is blood products of a menstrual cycle - Re-Assessments/Exams Free Text/Narrative Re-Assessment/Exam: 11/23/19 03:39 I spoke to the patient and her significant other regarding the ultrasound results and the blood results. I suggested that she get some Aleve or some naproxen and take it faithfully for the abdominal cramps. Departure - Departure Time of Disposition: 03:40 Disposition: Home, Self-Care 01 Condition: Good Clinical Impression: Menstrual cramps Heavy menstrual bleeding Qualifiers: Menorrhagia type: with irregular cycle Qualified Code(s): N92.1 - Excessive and frequent menstruation with irregular cycle - Discharge Information *PRESCRIPTION DRUG MONITORING PROGRAM REVIEWED*: Not Applicable *COPY OF PRESCRIPTION DRUG MONITORING REPORT IN PATIENT LIDIA: Not Applicable Instructions: Metrorrhagia, [id number] Referrals: Sydnee Winston MD [Primary Care Provider] - Additional Instructions: Get some Aleve take 2 tablets day with food to help with the menstrual cramps, follow-up with your family doctor or [facility] doctor next week if the symptoms seem to worsen or you develop a fever, return to the ER if needed Sepsis Event Note (ED) - Evaluation Sepsis Screening Result: No Definite Risk - Focused Exam Vital Signs: Vital Signs Temp Pulse Resp BP Pulse Ox 11/23/19 01:54 97.7 F 108 H 16 131/88 96 - My Orders Last 24 Hours: My Active Orders 11/23/19 02:16 Pelvis Non OB Comp [US] Stat 11/23/19 02:17 UA W/MICROSCOPIC [URIN] Stat - Assessment/Plan Last 24 Hours: My Active Orders 11/23/19 02:16 Pelvis Non OB Comp [US] Stat 11/23/19 02:17 UA W/MICROSCOPIC [URIN] Stat
--- NOTE | 2019-11-23 11:34 | US ---
Pelvic ultrasound: Multiple real-time images were obtained transabdominally. Uterus is retroflexed. Nabothian cyst is noted. Small amount of free fluid is seen within the pelvis believed to be physiologic. Endometrial thickness is between 1.5 cm and 2.1 cm. Difficult to exclude blood products within the endometrial cavity. Maternal ovaries appear within normal limits. Measurements: Uterus: Length of 11.1 cm, AP height 3.9 cm, transverse width 5.5 cm Right ovary: 5.1 x 3.1 x 4.1 cm Left ovary: 2.6 x 2.1 x 2.2 cm Impression: 1. Slightly thickened endometrium with probable blood within the endometrial cavity. 2. No other acute finding is seen. Diagnostic code #3 This report was dictated in MDT I agree with preliminary report from [facility], finalized on 11/23/19, 4:33 AM Central Daylight Time
== END 2019-11-23 03:46 | disposition home or self-care (01) ==
LOC: JD.ED 01:46
DX: N92.1 Excessive and frequent menstruation with irregular cycle (principal); N94.6 Dysmenorrhea, unspecified; F17.210 Nicotine dependence, cigarettes, uncomplicated; Z88.1 Allergy status to other antibiotic agents; Z79.899 Other long term (current) drug therapy
CPT/HCPCS: 36415; 76856; 80053; 81001; 85025; 99284; A9270; 99283

== ENCOUNTER 2020-10-04 15:15 | Emergency (ER) | payer MEDICAID ==
[2020-10-04] MEDS ORDERED: Sodium Chloride 0.9% 10 ML Syringe FLUSH PRN (16:07)
[2020-10-04] MEDS ORDERED: Sodium Chloride 0.9% 1,000 ML IV STA (16:08)
--- NOTE | 2020-10-04 17:17 | EDM.PDOC ---
ED HPI GENERAL MEDICAL PROBLEM - General Chief Complaint: CREDENTIALING ASSISTANT Problem Stated Complaint: HEAVY VAGINAL BLEEDING Time Seen by Provider: 10/04/20 16:02 Source of Information: Reports: Patient, RN Notes Reviewed History Limitations: Reports: No Limitations - History of Present Illness INITIAL COMMENTS - FREE TEXT/NARRATIVE: Patient is a 35-year-old female presenting to the emergency department with complaints of heavy vaginal bleeding. Reports last menstrual period was September 04. Approximately September 22 she began to develop spotting and this was consistent up until yesterday. Today she developed heavy vaginal bleeding with blood clots. She reports "blood clot is big is a baseball ". She does have some mild "period cramps" but nothing out of the normal for her. She reports a history of uterine prolapse after her last baby which is now 1-year-old. She is not on any control medications and is sexually active. Does not think she is . She reports that prior to coming ER, she was in the shower cleaning up and she became dizzy. She did not have a syncopal episode. Denies dizziness at this time. Patient's CREDENTIALING ASSISTANT is Dr. Javon Beltran. Lower Abdomen Pain Score (Numeric/FACES): 8 - Related Data Allergies Allergy/AdvReac Type Severity Reaction Status Date / Time ciprofloxacin [From Cipro] Allergy Rash Verified 10/04/20 16:06 Home Meds: Home Meds Acyclovir [Zovirax] 400 mg PO DAILY 10/04/20 [History] Cholecalciferol (Vitamin D3) [Vitamin D] 5,000 units PO DAILY 10/04/20 [History] Past Medical History - Past Health History Medical/Surgical History: Denies Medical/Surgical History CREDENTIALING ASSISTANT History: Reports: , Other (See Below) Other CREDENTIALING ASSISTANT History: prolapsed uterus Musculoskeletal History: Reports: Other (See Below) Other Musculoskeletal History: vitamin D deficiency Endocrine/Metabolic History: Reports: Vitamin D Deficiency - Infectious Disease History Infectious Disease History: Reports: None Other Infectious Disease History: RPR positive in February 2019, titer 1:32, treated x3 IM Penicillin doses Social & Family History - Family History Family Medical History: No Pertinent Family History - Tobacco Use Tobacco Use Status *Q: Current Every Day Tobacco User Years of Tobacco use: 15 Packs/Tins Daily: 0.5 - Caffeine Use Caffeine Use: Reports: Tea - Recreational Drug Use Recreational Drug Use: No - Living Situation & Occupation Living situation: Reports: , with Spouse, with Family (Son) Occupation: Employed ([employer]) ED ROS GENERAL - Review of Systems Review Of Systems: Comprehensive ROS is negative, except as noted in HPI. ED EXAM, RENAL/ - Physical Exam Exam: See Below Exam Limited By: No Limitations General Appearance: Alert, WD/WN, No Apparent Distress Respiratory/Chest: No Respiratory Distress, Lungs Clear, Normal Breath Sounds, No Accessory Muscle Use, Chest Non-Tender Cardiovascular: Normal Peripheral Pulses, Regular Rate, Rhythm, No Edema, No Gallop, No JVD, No Murmur, No Rub GI/Abdominal: Normal Bowel Sounds, Soft, No Organomegaly, No Distention, No Abnormal Bruit, No Mass, Tender (mild suprapubic) Neurological: Alert, Oriented, CN II-XII Intact, Normal Cognition, Normal Gait, Normal Reflexes, No Motor/Sensory Deficits Psychiatric: Normal Affect, Normal Mood Skin Exam: Warm, Dry, Intact, Normal Color, No Rash Course - Vital Signs Last Recorded V/S: Last Vital Signs Temp 97.5 F 10/04/20 16:02 Pulse 78 10/04/20 19:20 Resp 16 10/04/20 19:20 BP 127/92 H 10/04/20 19:20 Pulse Ox 97 10/04/20 19:20 - Orders/Labs/Meds Labs: Laboratory Tests 10/04/20 10/04/20 10/04/20 Range/Units 16:07 16:09 16:09 WBC 9.16 (3.98-10.04) K/mm3 RBC 4.59 (3.98-5.22) M/mm3 Hgb 13.7 (11.2-15.7) gm/dl Hct 40.9 (34.1-44.9) % MCV 89.1 (79.4-94.8) fl MCH 29.8 (25.6-32.2) pg MCHC 33.5 (32.2-35.5) g/dl RDW Std Deviation 43.9 (36.4-46.3) fL Plt Count 277 (182-369) K/mm3 MPV 9.6 (9.4-12.3) fl Neut % (Auto) 60.1 (34.0-71.1) % Lymph % (Auto) 28.8 (19.3-51.7) % [place] % (Auto) 9.1 (4.7-12.5) % Eos % (Auto) 1.7 (0.7-5.8) Baso % (Auto) 0.2 (0.1-1.2) % Neut # (Auto) 5.50 (1.56-6.13) K/mm3 Lymph # (Auto) 2.64 (1.18-3.74) K/mm3 [place] # (Auto) 0.83 H (0.24-0.36) K/mm3 Eos # (Auto) 0.16 (0.04-0.36) K/mm3 Baso # (Auto) 0.02 (0.01-0.08) K/mm3 Sodium 140 (136-145) mEq/L Potassium 3.8 (3.5-5.1) mEq/L Chloride 103 (98-107) mEq/L Carbon Dioxide 27 (21-32) mEq/L Anion Gap 13.8 (5-15) BUN 14 (7-18) mg/dL Creatinine 0.9 (0.55-1.02) mg/dL Est Cr Clr Drug Dosing 73.55 mL/min Estimated GFR (MDRD) > 60 (>60) mL/min BUN/Creatinine Ratio 15.6 (14-18) Glucose 91 (70-99) mg/dL Calcium 8.6 (8.5-10.1) mg/dL Total Bilirubin 0.2 (0.2-1.0) mg/dL AST TNP ALT 22 (14-59) U/L Alkaline Phosphatase 58 (46-116) U/L Total Protein 7.9 (6.4-8.2) g/dl Albumin 4.1 (3.4-5.0) g/dl Globulin 3.8 gm/dL Albumin/Globulin Ratio 1.1 (1-2) HCG, Qual (NEGATIVE) Urine Color Red H (Yellow) Urine Appearance Cloudy H (Clear) Urine pH 6.0 (5.0-8.0) Ur Specific [place] > or = 1.030 (1.005-1.030) Urine Protein 2+ H (Negative) Urine Glucose (UA) Negative (Negative) Urine Ketones Negative (Negative) Urine Occult Blood 3+ H (Negative) Urine Nitrite Negative (Negative) Urine Bilirubin Negative (Negative) Urine Urobilinogen 0.2 (0.2-1.0) Ur Leukocyte Esterase Negative (Negative) Urine RBC Too numerous to cnt H (0-5) /hpf Urine WBC 0-5 (0-5) /hpf Ur Squamous Epith Cells 0-5 (0-5) /hpf Urine Bacteria Few (FEW) /hpf Urine Mucus Not seen (FEW) /hpf 10/04/20 Range/Units 16:09 WBC (3.98-10.04) K/mm3 RBC (3.98-5.22) M/mm3 Hgb (11.2-15.7) gm/dl Hct (34.1-44.9) % MCV (79.4-94.8) fl MCH (25.6-32.2) pg MCHC (32.2-35.5) g/dl RDW Std Deviation (36.4-46.3) fL Plt Count (182-369) K/mm3 MPV (9.4-12.3) fl Neut % (Auto) (34.0-71.1) % Lymph % (Auto) (19.3-51.7) % [place] % (Auto) (4.7-12.5) % Eos % (Auto) (0.7-5.8) Baso % (Auto) (0.1-1.2) % Neut # (Auto) (1.56-6.13) K/mm3 Lymph # (Auto) (1.18-3.74) K/mm3 [place] # (Auto) (0.24-0.36) K/mm3 Eos # (Auto) (0.04-0.36) K/mm3 Baso # (Auto) (0.01-0.08) K/mm3 Sodium (136-145) mEq/L Potassium (3.5-5.1) mEq/L Chloride (98-107) mEq/L Carbon Dioxide (21-32) mEq/L Anion Gap (5-15) BUN (7-18) mg/dL Creatinine (0.55-1.02) mg/dL Est Cr Clr Drug Dosing mL/min Estimated GFR (MDRD) (>60) mL/min BUN/Creatinine Ratio (14-18) Glucose (70-99) mg/dL Calcium (8.5-10.1) mg/dL Total Bilirubin (0.2-1.0) mg/dL AST ALT (14-59) U/L Alkaline Phosphatase (46-116) U/L Total Protein (6.4-8.2) g/dl Albumin (3.4-5.0) g/dl Globulin gm/dL Albumin/Globulin Ratio (1-2) HCG, Qual Negative (NEGATIVE) Urine Color (Yellow) Urine Appearance (Clear) Urine pH (5.0-8.0) Ur Specific [place] (1.005-1.030) Urine Protein (Negative) Urine Glucose (UA) (Negative) Urine Ketones (Negative) Urine Occult Blood (Negative) Urine Nitrite (Negative) Urine Bilirubin (Negative) Urine Urobilinogen (0.2-1.0) Ur Leukocyte Esterase (Negative) Urine RBC (0-5) /hpf Urine WBC (0-5) /hpf Ur Squamous Epith Cells (0-5) /hpf Urine Bacteria (FEW) /hpf Urine Mucus (FEW) /hpf Meds: Medications Discontinued Medications Generic Name Dose Route Start Last Admin Trade Name Freq PRN Reason Stop Dose Admin Sodium Chloride 1,000 mls @ 999 mls/hr 10/04/20 16:08 10/04/20 16:22 Normal Saline IV 10/04/20 17:08 999 mls/hr NOW STA Administration Sodium Chloride 10 ml 10/04/20 16:07 10/04/20 16:22 Sodium Chloride 0.9% 10 Ml Syringe FLUSH 10 ml ASDIRECTED PRN Administration Keep Vein Open - Re-Assessments/Exams Free Text/Narrative Re-Assessment/Exam: 10/04/20 17:29 Hematology is grossly unremarkable. Qualitative hCG is negative. Urinalysis shows 2+ protein, 3+ occult blood, and RBCs too numerous to count. There is no signs of infection. This was contamination from patient's vaginal bleeding. I have ordered a non-OB transvaginal ultrasound to be completed. 10/04/20 19:19 Pelvic ultrasound impression as follows: 1. Small amount of blood within the cul-de-sac. Etiology of this is not appreciated pelvic ultrasound. 2. The portion of the pelvic ultrasound study appear within normal limits. Case discussed with CREDENTIALING ASSISTANT, Dr. Beltran. He discussed that we could do norethindrone 5 mg for 7 days if the patient is bleeding quite heavily and she desires to do so. Discussed this option with the patient. She prefers to just try ibuprofen and see if that will slow the bleeding. She does have an appointment tomorrow with Dr. Winston. Recommend that she switch to pads instead of tampons so that she may better gauge the amount of blood she is last. If she saturates a pad an hour for more than 2 hours, she should return to ER. She verbalized understanding of this. Discharge instructions as documented. Departure - Departure Time of Disposition: 19:18 Disposition: Home, Self-Care 01 Condition: Good Clinical Impression: Menorrhagia Qualifiers: Menorrhagia type: with irregular cycle Qualified Code(s): N92.1 - Excessive and frequent menstruation with irregular cycle - Discharge Information Instructions: Menorrhagia Referrals: Sydnee Winston MD [Primary Care Provider] - Forms: ED Department Discharge Additional Instructions: You were seen in the emergency department today for heavy vaginal bleeding. Work-up included blood work, urinalysis, and a pelvic ultrasound. Results of your blood work were found to be normal. Your test was negative. Pelvic ultrasound did show some blood within the cul-de-sac which is likely attributed to your heavy vaginal bleeding. Hormone supplement to stop the bleeding was discussed and you declined this option at this time. Recommend that you switch to pads instead of tampon so that she may better gauge her amount of bleeding. If you are saturating a pad an hour for 2 or more hours, you should return to ER. Continue to use ibuprofen as needed. Follow-up with Dr. Winston tomorrow as scheduled. Sepsis Event Note (ED) - Evaluation Sepsis Screening Result: No Definite Risk
--- NOTE | 2020-10-04 19:04 | US ---
Pelvic ultrasound: Multiple real-time images were obtained transvaginally. Comparison: Prior pelvic ultrasound study of 11/23/19. Uterus is retroverted. Endometrial thickness is 1.2 cm. Follicles are seen within both ovaries. No larger cyst or solid abnormality is appreciated. Small amount of increased fluid is seen within the cul-de-sac which appears slightly echogenic raising the possibility of mild amount of blood. Measurements: Right ovary: 3.3 x 2.5 x 1.6 cm Left ovary: 3.3 x 2.4 x 2.3 cm Uterus: Length 7.6 cm, AP 8 5.1 cm, transverse with 5.4 cm Impression: 1. Small amount of blood within the cul-de-sac. Etiology of this is not appreciated on this pelvic ultrasound. 2. Other portions of the pelvic ultrasound study appear within normal limits. Diagnostic code #3
== END 2020-10-04 19:20 | disposition home or self-care (01) ==
LOC: JD.ED 15:15
DX: N92.1 Excessive and frequent menstruation with irregular cycle (principal)
CPT/HCPCS: 36415; 76830; 80053; 81001; 84703; 85025; 99284; J7030; 99283